=== PATIENT | male | born 1980 ===

== ENCOUNTER 2018-04-16 02:44 | Emergency (ER) | payer SELFPAY ==
--- NOTE | 2018-04-16 03:15 | ED PDOC ---
HPI: Psych/Substance Abuse Time Seen by Provider: 04/16/18 02:51 Chief Complaint (Nursing): Alcohol Ingestion Chief Complaint (Provider): Alcohol Ingestion History Per: Patient History/Exam Limitations: no limitations Onset/Duration Of Symptoms: Mins (prior to arrival) Current Symptoms Are (Timing): Still Present Additional History Per: EMS, Law Enforcement Additional Complaint(s): Patient is a 37 year old male with no pmhx brought in by EMS for public intoxication. He admits to drinking beer tonight, but cannot quantify how much he drank. Per patient, he just wanted to take a rest, so walked to a nearby building and fell asleep in a smith. He states he was awoken by policemen grabbing him out of the smith to be brought in for evaluation. Denies drug use and significant injury. At this time, the patient has no complaints. PMD: none provided Past Medical History Reviewed: Historical Data, Nursing Documentation, Vital Signs Vital Signs: Last Vital Signs Temp 97.5 F L 04/16/18 03:05 Pulse 90 04/16/18 03:05 Resp 16 04/16/18 03:05 BP 148/100 H 04/16/18 03:05 Pulse Ox 100 04/16/18 03:05 - Medical History PMH: No Chronic Diseases - Surgical History Surgical History: No Surg Hx - Family History Family History: States: Unknown Family Hx - Social History Current smoker - smoking cessation education provided: No Alcohol: Social Drugs: Denies - Allergies Allergies/Adverse Reactions: Allergies Allergy/AdvReac Type Severity Reaction Status Date / Time No Known Allergies Allergy Verified 04/16/18 03:09 Review of Systems ROS Statement: Except As Marked, All Systems Reviewed And Found Negative Constitutional: Negative for: Other (injury) Psych: Positive for: Other (intoxication) Physical Exam - Reviewed Nursing Documentation Reviewed: Yes Vital Signs Reviewed: Yes - Physical Exam Appears: Positive for: Well, Non-toxic, No Acute Distress (but appears intoxicated) Head Exam: Positive for: ATRAUMATIC, NORMOCEPHALIC Skin: Positive for: Normal Color, Warm, Dry Eye Exam: Positive for: Normal appearance, EOMI, PERRL ENT: Positive for: Normal ENT Inspection Neck: Positive for: Normal, Painless ROM, Supple Cardiovascular/Chest: Positive for: Regular Rate, Rhythm. Negative for: Murmur Respiratory: Positive for: Normal Breath Sounds. Negative for: Accessory Muscle Use, Respiratory Distress Gastrointestinal/Abdominal: Positive for: Normal Exam, Soft. Negative for: Tenderness Back: Positive for: Normal Inspection. Negative for: L CVA Tenderness, R CVA Tenderness, Vertebral Tenderness Extremity: Positive for: Normal ROM. Negative for: Pedal Edema, Calf Tenderness Neurologic/Psych: Positive for: Alert, Oriented (x3), Gait (steady). Negative for: Motor/Sensory Deficits - ECG O2 Sat by Pulse Oximetry: 100 (RA) Pulse Ox Interpretation: Normal Medical Decision Making Medical Decision Making: A/P Patient with no pmhx brought in for alcohol intoxication -has normal vital signs and is well appearing other than being intoxicated -will check alcohol level and observe until sober 625AM Patient is now awake, alert, steady gait. Stable for discharge. Scribe Attestation: Documented by Xenia Mortensen, acting as a scribe for Pedro Luis Kemp MD. Provider Scribe Attestation: All medical entries made by the Scribe were at my direction and personally dictated by me. I have reviewed the chart and agree that the record accurately reflects my personal performance of the history, physical exam, medical decision making, and the department course for this patient. I have also personally directed, reviewed, and agree with the discharge instructions and disposition. Disposition - Clinical Impression Clinical Impression: Alcohol abuse - Patient ED Disposition Is Patient to be Admitted: No - Disposition Referrals: Alcoholics Anonymous [Outside] Disposition: Routine/Home Disposition Time: 06:25 Condition: STABLE Instructions: Alcohol Abuse and Alcoholism (DC) Forms: [employer] (Khmer)
[2018-04-16 06:23] VITALS: BP 114/65; PULSE 99; TEMP 98.5
[2018-04-16 06:24] VITALS: RESP 18
[2018-04-16 06:42] VITALS: O2SAT 98
== END 2018-04-16 06:40 | disposition home or self-care (01) ==
LOC: H.ER 02:44
DX: F10.10 Alcohol abuse, uncomplicated (principal)
CPT/HCPCS: 82948; 99285; G0480